=== PATIENT | female | born 1950 | race Asian ===

== ENCOUNTER 2016-06-07 06:34 | Day surgery (SDC) | payer OTHER ==
[~2016-06-07 06:34] MED LIST: CLINDAMYCIN 600 MG/D5W RTU 600 MG/50 ML RTUPB IV PRN; RINGERS SOLUTION,LACTATED 1,000 ML IV PRN
[2016-06-07] MEDS ORDERED: LIDOCAINE 2% INJ (20 MG/ML) 20 ML MDV ONE (07:15)
[2016-06-07] MEDS ORDERED: BUPIVACAINE HCL 0.5 % INJ/PF 30 ML SDV ONE (07:15)
[2016-06-07] MEDS ORDERED: DIPHENHYDRAMINE HCL 50 MG/ML VIAL ONE (07:23)
[2016-06-07] MEDS ORDERED: MIDAZOLAM 2 MG/2 ML INJ ONE (07:23)
[2016-06-07] MEDS ORDERED: FENTANYL CITRATE INJ/PF 100 MCG/2 ML AMPUL ONE (07:23)
[2016-06-07] MEDS ORDERED: PROPOFOL INJ 200 MG/20 ML VIAL IV ONE (07:24)
[2016-06-07] MEDS ORDERED: LIDOCAINE 2% INJ-PF (20 MG/ML) 10 ML AMPUL ONE (07:24)
[2016-06-07] MEDS: POVIDONE-IODINE 10% OINTMENT 28.4 GM ONE ×2 (08:36)
--- NOTE | 2016-06-07 09:24 | [facility] OPERATIVE REPORT E ---
[facility] Operative Report NAME: MAY PALMER AGE: 65Y DATE OF SURGERY: 06/07/2016 ROOM: PREOPERATIVE DIAGNOSIS: Onychoincurvatus hallux bilateral. POSTOPERATIVE DIAGNOSIS: Onychoincurvatus hallux bilateral. PROCEDURES PERFORMED: 1. Partial nail avulsion medial and lateral borders hallux bilateral. 2. Partial matrixectomy medial and lateral corners of matrix, hallux bilateral. SURGEON: SANDHYA CRONIN D.P.M. INTRAOPERATIVE FINDINGS: Indicated deeply incurvated nail borders causing continuous friction into the nail grooves, which has created a great deal of difficulties with wearing closed-in shoes. Intraoperative findings were confirmed clinically. PROCEDURE: With the patient laying in the dorsal recumbent position, both feet were prepped and draped in the usual standard sterile orthopedic manner after the local anesthesia was administered, which was a total block of the right and left hallux. The type of anesthesia utilized was a 50/50 mixture of 2% Xylocaine and 0.5% Marcaine. After the anesthetic effect was accomplished, attention was directed to the right hallux first. The medial and lateral borders of the nail plate were removed en toto. The nail grooves were cleaned from any debris. After that, the digital tourniquet was applied in the base of the right hallux to control hemostasis. Two oblique 1 cm in length incisions were placed at the junction of the medial and lateral corners of the eponychium with proximal medial and lateral corners of the nail grooves. The incisions were angulated about 45 degrees. They were carried all the way down to bone. The skin flaps were created and the corners of the matrix were visualized. First, there was a sharp excision of the corners. After that, the denuded bone was curetted, and finally, electrodesiccation was performed to assure total destruction of any remnants of matrix, which may lead to regeneration of nail tissue. At this point, the areas were irrigated. The spaces were packed with Gelfoam. The skin flaps were repositioned and anchored down with 4-0 nylon using continuous Interlock stitch. Betadine compression dressing was applied around the right hallux. The digital tourniquet was removed. Circulation to the right hallux returned to normal immediately as the normal digital color and temperature became apparent. Next, attention was directed to the left hallux and exactly the same procedures were performed at this time. Patient tolerated procedures well, left the operating room with stable vital signs and in good condition. Patient was taken to the recovery room alert, conscious, and oriented. There are no permanent disabilities anticipated at this time. DICTATING PHYSICIAN: SANDHYA CRONIN D.P.M. [id number] PHY#: [id number] ID: [id number] JOB#: [id number] ACCT: [id number] cc:SANDHYA CRONIN D.P.M. >
== END 2016-06-07 09:37 | disposition home or self-care (01) ==
LOC: SC 06:34
PROVIDERS: ATTEND Podiatrist Foot & Ankle Surgery
PROC: 0HTRXZZ Resection of Toe Nail, External Approach (ICD-10-PCS; principal; 2016-06-07 07:30)
DX: L60.3 Nail dystrophy (principal); I10 Essential (primary) hypertension; Z79.899 Other long term (current) drug therapy; Z88.0 Allergy status to penicillin
CPT/HCPCS: 88304 ×2; 11750 ×2; J2250; J3490 ×3; J1200; J3010; J2704; 400